=== PATIENT | female | born 1975 | race Two or more races ===

== ENCOUNTER 2021-12-09 06:10 | Day surgery (SDC) | payer OTHER ==
[2021-12-09] MEDS ORDERED: MIRALAX17 GM PO (07:32)
[2021-12-09] MEDS ORDERED: NEURONTIN300 MG PO (07:32)
[2021-12-09] MEDS ORDERED: TYLENOL ARTHRI650 MG PO (07:32)
[2021-12-09] MEDS ORDERED: ULTRAM50 MG PO (07:32)
== END 2021-12-09 11:05 | disposition home or self-care (01) ==
LOC: CIR.AMB 06:10 → U 06:10 → CIR.AMB 06:45
PROVIDERS: ATTEND Surgery
DX: K42.0 Umbilical hernia with obstruction, without gangrene (principal); K43.9 Ventral hernia without obstruction or gangrene; Z20.822 Contact with and (suspected) exposure to COVID-19